=== PATIENT | female | born 1975 | race Caucasian/White ===

== ENCOUNTER 2022-07-10 17:12 | Outpatient (REF) | payer SELFPAY | END 2022-07-10 17:13 | disposition home or self-care (01) | LOC: LBN 17:12 | PROVIDERS: PCP Internal Medicine; Visit Provider Nurse Practitioner Family | DX: R35.0 Frequency of micturition (principal) | CPT/HCPCS: 87077; 87086; 87186 ==

== ENCOUNTER 2025-05-20 00:52 | Outpatient (CLI) | payer OTHER, SELFPAY ==
[2025-05-20 09:27] LABS: ALT 30 U/L (10-49); AST 22 U/L (<34); Albumin 4.5 g/dL (3.2-5.0); Alkaline Phosphatase 70 U/L (46-116); Anion Gap 7.2 mmol/L (3-11); BUN 8 mg/dL (9-23); Bilirubin, Total 0.3 mg/dL (0.2-1.2); CO2 31.8 mmol/L (20.0-31.0); Calcium 9.6 mg/dL (8.3-10.6); Chloride 105 mmol/L (98-107); Cholesterol 238 mg/dL (<200); Glucose 105 mg/dL (74-106); HDL Cholesterol 55 mg/dL (>40); Potassium 4.5 mmol/L (3.5-5.1); Sodium 144 mmol/L (136-145); Total Protein 7.6 g/dL (5.7-8.2)
== END 2025-05-20 00:53 | disposition home or self-care (01) ==
LOC: LBO 00:52
PROVIDERS: PCP Internal Medicine; Visit Provider Internal Medicine
DX: Z12.11 Encounter for screening for malignant neoplasm of colon (principal); I10 Essential (primary) hypertension
CPT/HCPCS: 36415; 80053; 80061